=== PATIENT | female | born 1970 | race Caucasian/White ===

== ENCOUNTER 2017-10-09 10:59 | Day surgery (SDC) | payer BC ==
[~2017-10-09 10:59] MED LIST: Acetaminophen/HYDROcodone 325-5 MG Tab PO PRN; Bupivacaine 0.5% 30 ML SDV ONE; Lactated Ringers 1,000 ML IV SCH; ceFAZolin 2 GM in Premix Bag 1 BAG IV SCH
--- NOTE | 2017-10-09 12:35 | PCM.PREANE ---
Preanesthetic Assessment - Anesthesia/Transfusion/Family Hx Anesthesia History: Prior Anesthesia Without Reaction Other Type of Anesthesia Reaction Comment: Denies any known problems in past, no known family hx: problems Family History of Anesthesia Reaction: No Transfusion History: No Prior Transfusion(s) - Review of Systems General: No Symptoms Pulmonary: No Symptoms Cardiovascular: No Symptoms Gastrointestinal: No Symptoms Neurological: No Symptoms Other: Reports: None - Physical Assessment NPO Status Date: 10/08/17 NPO Status Time: 21:00 O2 Sat by Pulse Oximetry: 97 Respiratory Rate: 16 Vital Signs: Last Vital Signs Temp 36.2 C 10/09/17 11:30 Pulse 61 10/09/17 11:30 Resp 16 10/09/17 11:30 BP 105/63 10/09/17 11:30 Pulse Ox 97 10/09/17 11:30 Height: 1.57 m Weight: 86.183 kg ASA Class: 2 Airway Class: Mallampati = 1 Dentition: Reports: Caries ROM/Head Extension: Full Lungs: Clear to Auscultation, Normal Respiratory Effort Cardiovascular: Regular Rate, Regular Rhythm - Allergies Allergies/Adverse Reactions: Allergies Allergy/AdvReac Type Severity Reaction Status Date / Time Bandages Allergy Redness Uncoded 10/04/17 13:40 - Anesthesia Plan Pre-Op Medication Ordered: None - Acknowledgements Anesthesia Type Planned: General Anesthesia Pt an Appropriate Candidate for the Planned Anesthesia: Yes Alternatives and Risks of Anesthesia Discussed w Pt/Guardian: Yes Pt/Guardian Understands and Agrees with Anesthesia Plan: Yes PreAnesthesia Questionnaire Other HEENT History: has glasses, doesn't wear them Gastrointestinal History: Reports: GERD Other Gastrointestinal History: no GERD recently DIVE MASTER History: Reports: Musculoskeletal History: Reports: Fracture Neurological History: Reports: Other (See Below) Other Neuro History: hx of restless leg syndrome Psychiatric History: Reports: Anxiety Endocrine/Metabolic History: Reports: Obesity/BMI 30+ - Past Surgical History Head Surgeries/Procedures: Reports: None GI Surgical History: Reports: Bariatric Procedure, Cholecystectomy, EGD Female Surgical History: Reports: Section Other Female Surgeries/Procedures: x 4 Musculoskeletal Surgical History: Reports: ORIF Other Musculoskeletal Surgeries/Procedures:: ORIF Right Ankle - SUBSTANCE USE Smoking Status *Q: Current Every Day Smoker Tobacco Use Within Last Twelve Months: Cigarettes Second Hand Smoke Exposure: No Days Per Week of Alcohol Use: 0 Number of Drinks Per Day: 0 Total Drinks Per Week: 0 Recreational Drug Use History: No - HOME MEDS Home Medications: Home Meds ALPRAZolam [Alprazolam] 1 mg PO BEDTIME 10/04/17 [History] rOPINIRole [Requip] 0.5 mg PO BEDTIME 10/04/17 [History] - CURRENT (IN HOUSE) MEDS Current Meds: Current Medications Hydrocodone Bitart/Acetaminophen ([place] 325-5 Mg) 1 - 2 tab PO Q4H PRN PRN Reason: Pain Cefazolin Sodium/Dextrose 2 gm (/ Premix) 50 mls @ 100 mls/hr IV ONCALL PILY Lactated Ringer's (Ringers, Lactated) 1,000 mls @ 100 mls/hr IV ASDIRECTED [facility] Last Admin: 10/09/17 12:22 Dose: 100 mls/hr Discontinued Medications Bupivacaine HCl (Marcaine 0.5%) Confirm Administered Dose 30 ml .ROUTE .STK-MED ONE Stop: 10/09/17 10:31
[2017-10-09] MEDS ORDERED: Midazolam 1 MG/ML 2 ML SDV ONE (12:40)
[2017-10-09] MEDS ORDERED: Propofol 200 MG/20 ML SDV ONE (12:40)
[2017-10-09] MEDS ORDERED: Lidocaine 2% 5 ML SDV ONE (12:40)
[2017-10-09] MEDS ORDERED: Ondansetron 4 MG/2 ML SDV ONE (12:40)
[2017-10-09] MEDS ORDERED: fentaNYL 250 MCG/5 ML SDV ONE (12:41)
[2017-10-09] MEDS ORDERED: Glycopyrrolate 0.2 MG/ML SDV ONE (13:18)
[2017-10-09] MEDS ORDERED: ceFAZolin 1 GM Vial ONE (13:19)
[2017-10-09] MEDS ORDERED: Sodium Chloride 0.9% 20 ML ONE (13:19)
[2017-10-09] MEDS ORDERED: Mineral Oil/Petrolatum Ophth Oint 3.5 GM Tube ONE (13:25)
--- NOTE | 2017-10-09 13:48 | PCM.OPNOTE ---
- General Post-Op/Procedure Note Date of Surgery/Procedure: 10/09/17 Operative Procedure(s): HWR R ankle Post-Op Diagnosis: painful retained HW R ankle Anesthesia Technique: General LMA Primary Surgeon: Josette Buenrostro Chief Learning Officer: Yesenia Salvador in mLs: 5 Condition: Good Free Text/Narrative:: tt=9 min #[id number]
[2017-10-09] MEDS ORDERED: ePHEDrine 50 MG/ML SDV ONE (14:00)
[2017-10-09] MEDS: fentaNYL 100 MCG/2 ML SDV IVPUSH PRN ×2 (14:17→14:23)
--- NOTE | 2017-10-09 14:45 | OR ---
SURGEON: Josette Buenrostro MD DATE OF PROCEDURE: 10/09/2017 PREOPERATIVE DIAGNOSIS: Painful retained hardware, right ankle. POSTOPERATIVE DIAGNOSIS: Painful retained hardware, right ankle. PROCEDURE: Hardware removal, right ankle, deep implant. DRY BOX OPERATOR: Yesenia Salvador PA-C ANESTHESIA: General. ESTIMATED BLOOD LOSS: 5 mL. TOURNIQUET TIME: 9 minutes. COMPLICATIONS: None. DVT PROPHYLAXIS: Not indicated. IMPLANTS USED: None. BRIEF HISTORY: Julienne is a 47-year-old female, who has had complaint of progressive right ankle pain. She has previously undergone open reduction and internal fixation of a right distal fibula fracture at an outside facility. X-rays were obtained, which did show some loosening of the screws. At that time, I recommended surgical intervention. The risks and goals of procedure were discussed with the patient and were documented preoperatively. She agreed to proceed. DESCRIPTION OF PROCEDURE: The patient was properly identified and brought to the operating room. She was transferred from the OR cart and placed on the operating table in supine position. General anesthesia was administered. After adequate anesthesia was obtained, a well-padded tourniquet was applied to the right lower extremity. The right lower extremity was then prepped in standard fashion using ChloraPrep solution. It was then sterilely draped. A time-out was performed to ensure correct site and procedure. Preoperative antibiotics were given. The surgical site had been marked preoperatively. The tourniquet was inflated to 250 mmHg. An incision was made over the lateral aspect of the ankle, over the site of the previous incision. Subcutaneous tissues were incised. The hardware was readily apparent. Electrocautery was used to elevate the soft tissue from the plate. Subperiosteal elevator was also used. Screws were then removed without difficulty. The plate was also removed. A rongeur was used to smooth the sites of the screw holes. The fracture appeared to be well healed. The wound was then copiously irrigated with saline solution. The deep tissues were closed with 0 Vicryl. Tourniquet was deflated. No excess bleeding was noted. 2-0 Monocryl was then used to close subcutaneous tissues and the skin was closed with celso. 1% Lidocaine was injected along the incision site. Xeroform gauze was placed over the wound, and a bulky dressing was applied. She was awakened from her anesthetic and transferred back to the operating room cart. She was brought to recovery room in stable condition. All needle and sponge counts were correct. NISA / SCOTTY /[id number]
--- NOTE | 2017-10-09 14:48 | PCM48HPAN ---
Post Anesthesia Note - EVALUATION WITHIN 48HRS OF ANESTHETIC Vital Signs in Normal Range: Yes Patient Participated in Evaluation: Yes Respiratory Function Stable: Yes Airway Patent: Yes Cardiovascular Function Stable: Yes Hydration Status Stable: Yes Pain Control Satisfactory: Yes Nausea and Vomiting Control Satisfactory: Yes Mental Status Recovered: Yes Resp Rate: 10
--- NOTE | 2017-10-09 14:48 | PCM.POSTAN ---
POST ANESTHESIA ASSESSMENT - MENTAL STATUS Mental Status: Alert, Oriented - RESPIRATORY Respiratory Status: Respiratory Rate WNL, Airway Patent, O2 Saturation Stable - CARDIOVASCULAR CV Status: Pulse Rate WNL, Blood Pressure Stable - GASTROINTESTINAL GI Status: No Symptoms - POST OP HYDRATION Hydration Status: Adequate & Stable
[2017-10-09 15:29] VITALS: BP 97/61
--- NOTE | 2017-10-09 16:49 | CR ---
EXAMINATION: Right ankle HISTORY: Hardware removal COMPARISON: 2017 TECHNIQUE: Single view FINDINGS/IMPRESSION: Postoperative control film demonstrates removal of previously demonstrated screw and plate hardware fixating the distal fibula.
== END 2017-10-09 15:15 | disposition home or self-care (01) ==
LOC: MW.SDS 10:59
PROVIDERS: ATTEND Orthopaedic Surgery
DX: T84.84XA Pain due to internal orthopedic prosthetic devices, implants and grafts, initial encounter (principal); F41.9 Anxiety disorder, unspecified; J45.909 Unspecified asthma, uncomplicated; F32.9 Major depressive disorder, single episode, unspecified; K21.9 Gastro-esophageal reflux disease without esophagitis; E66.01 Morbid (severe) obesity due to excess calories; Z68.42 Body mass index [BMI] 45.0-49.9, adult; Z79.899 Other long term (current) drug therapy; Z91.048 Other nonmedicinal substance allergy status; F17.210 Nicotine dependence, cigarettes, uncomplicated
CPT/HCPCS: 20680; 76000; A9270; J0690; J2250; J2405; J3010; J7120; J2704